=== PATIENT | male | born 1955 | race Caucasian/White ===

== ENCOUNTER 2021-09-23 05:33 | Day surgery (SDC) | payer MEDICARE, SELFPAY ==
[2021-09-23] MEDS: Lactated Ringers 1,000 ML 15 ML IV (05:50)
[2021-09-23 06:15] VITALS: BP 137/75; PULSE 53; RESP 16; TEMP 36.2; O2SAT 95; BMI 31.1
[2021-09-23] MEDS: Cefazolin 2 GM in 0.9% Normal Saline 100 ML IV (07:21)
--- NOTE | 2021-09-23 07:42 | HP.PCM_ITS ---
HPI - General HPI Narrative DONNA RANKIN, is a 65 M who presents for placement of spacer Gel Matrix, planning for radiation therapy. PFSH Medical History (Updated 09/16/21 @ 14:25 by Ping Siddiqi) Anxiety Cancer High cholesterol Hypertension Wears glasses Home Medications aspirin 81 mg PO DAILY 09/16/21 [History Last Taken 09/16/21] atorvastatin 20 mg PO DAILY 09/16/21 [History Last Taken Unknown] diltiazem HCl [Cartia XT] 240 mg PO DAILY 09/16/21 [History Last Taken Unknown] latanoprost 1 drp EACH EYE QPM 09/16/21 [History Last Taken Unknown] losartan-hydrochlorothiazide 1 tab PO DAILY 09/16/21 [History Last Taken Unknown ] paroxetine HCl [Paxil] 30 mg PO DAILY 09/16/21 [History Last Taken Unknown] potassium chloride [Klor-Con] 20 meq PO DAILY 09/16/21 [History Last Taken Unknown] timolol 1 drp EACH EYE DAILY 09/16/21 [History Last Taken Unknown] ciprofloxacin HCl [Cipro] 500 mg PO BID #14 tab 09/23/21 [Rx Last Taken Unknown] Allergy/AdvReac Type Severity Reaction Status Date / Time doxycycline Allergy Other Verified 09/23/21 05:49 oxycodone Allergy Hives Verified 09/23/21 05:49 Sulfa (Sulfonamide AdvReac Hives Verified 09/23/21 05:49 Antibiotics) Surgical History (Updated 09/16/21 @ 14:25 by Ping Siddiqi) H/O eye surgery H/O foot surgery H/O umbilical hernia repair History of bilateral knee arthroplasty Social History Smoking Status: Former smoker Vital Signs Vital Signs Vital Signs: 09/23/21 06:15 Temperature 97.1 F L Temperature Source Temporal Pulse Rate 53 L Respiratory Rate 16 Respiratory Pattern Normal Blood Pressure 137/75 H Blood Pressure Mean 95 Blood Pressure Source Monitor Blood Pressure Position Semi-Fowlers Blood Pressure Location Left Arm Pulse Ox 95 Oxygen Delivery Method Room Air Weight Weight: 101.4 kg Body Mass Index (BMI) 31.1
--- NOTE | 2021-09-23 07:43 | PCM.DC ---
Discharge Instructions Diet Discharge Diet: No restrictions Activity Discharge Activity: Return to Normal Activity and May Not Drive (while taking narcotic pain medications.) Discharge Plan Admission Primary Reason for Your Visit: PROSTATE CANCER Attending Provider: Don Bahena Primary Care Provider: Duc Mancini Discharge Orders/Prescriptions Prescriptions: New ciprofloxacin HCl [Cipro] 500 mg tablet 500 mg PO BID Qty: 14 RF: 0 Continued latanoprost 0.005 % Drops 1 drp EACH EYE QPM RF: 0 atorvastatin 20 mg Tablet 20 mg PO DAILY RF: 0 diltiazem HCl [Cartia XT] 240 mg Capsule,Extended Release 24hr 240 mg PO DAILY RF: 0 losartan-hydrochlorothiazide 100-25 mg Tablet 1 tab PO DAILY RF: 0 potassium chloride [Klor-Con] 20 mEq Packet 20 meq PO DAILY RF: 0 paroxetine HCl [Paxil] 30 mg Tablet 30 mg PO DAILY RF: 0 timolol 0.25 % Drops 1 drp EACH EYE DAILY RF: 0 aspirin 81 mg Tablet 81 mg PO DAILY RF: 0 Referrals / Follow Up: Duc Mancini MD [Primary Care Provider] - Don Bahena MD [STAFF PHYSICIAN] - (Follow up as neccessary.) Disposition Disposition (needs filled in before D/C Order can be placed): Home, Self Care
--- NOTE | 2021-09-23 07:44 | PCM.OPRPT ---
Report of Operation Date of Procedure: 09/23/21 Pre-Operative Diagnosis: prostatate cancer Post-Operative Diagnosis: same Surgery/Procedure Performed:: placement of spacer gel matrix, Description of Surgical Findings:: Patient was taken back to the operating room after smooth induction of anesthesia he was placed supine on the table. The genitals and perineum were prepped and draped in usual sterile fashion. I then introduced a biplanar ultrasound probe into the rectum and performed ultrasonography and identified the Denonvilliers' fascia the prostate mid base and apex and seminal vesicles. The spacer gel mix was then prepared on the back table per manufactures instruction. Under ultrasound guidance in the midline perineum a bevel needle down we advanced through the perineum below the prostate into the space of Denonvilliers' fascia. This space which could be identified by ultrasound with a bright white layer between the prostate and the rectum. I then injected a puff of normal saline to identify the space further. After I confirmed that the needle was in the correct space in the mid prostate and the space of Denonvilliers' fascia between the rectum and the prostate. Then over the course of 15 seconds the gel matrix was injected slowly there was nice separation between the prostate and the rectum at the gel matrix was injected. The position of the gel matrix was confirmed by ultrasound. Then the injection needle was removed intact. Patient's perineum was cleaned patient was taken out of stirrups and then taken back to the PACU in good condition. Surgeon: [email or web address] Type of Anesthesia: General Drains: none Admit VTE Documentation VTE Present on Admission: No VTE Mechan Device Prophylaxis: SCD's VTE Pharm Prophylaxis ordered?: No
[2021-09-23 07:55] VITALS: BP 105/67; BP 137/75; PULSE 54; RESP 16; TEMP 36.6; O2SAT 95
[2021-09-23 08:00] VITALS: BP 115/70; BP 137/75; PULSE 54; RESP 16; O2SAT 97
[2021-09-23 08:15] VITALS: BP 109/76; BP 137/75; PULSE 51; RESP 16; O2SAT 92
[2021-09-23 08:16] VITALS: BP 119/74; BP 137/75; PULSE 51; RESP 16; TEMP 36.7; O2SAT 93
[2021-09-23 08:50] VITALS: BP 109/68; BP 137/75; PULSE 50; RESP 16; TEMP 35.8; O2SAT 94
== END 2021-09-23 08:57 | disposition home or self-care (01) ==
LOC: SDC 05:38 → AC 05:38
PROVIDERS: PCP Family Medicine; Referring Provider Urology; Visit Provider Urology
PROC: (CPT 55874; principal; 2021-09-23 07:15)
DX: C61 Malignant neoplasm of prostate (principal); I10 Essential (primary) hypertension; Z79.82 Long term (current) use of aspirin; E78.00 Pure hypercholesterolemia, unspecified; Z79.899 Other long term (current) drug therapy; Z87.891 Personal history of nicotine dependence
CPT/HCPCS: 55874; 00902; J7120; J2405